=== PATIENT | male | born 2000 | race Caucasian/White ===

== ENCOUNTER 2022-11-15 15:04 | Emergency (ER) | payer OTHER, SELFPAY ==
[2022-11-15 15:12] VITALS: BP 133/79; PULSE 76; RESP 16; TEMP 36.9; O2SAT 100; BMI 20.7
[2022-11-15 17:30] VITALS: BP 122/61; PULSE 74; O2SAT 97
[2022-11-15] MEDS: KETOROLAC 30 MG/ML VIAL IV (18:04)
[2022-11-15] MEDS: ACETAMINOPHEN 325 MG TABLET 975 MG PO (18:04)
[2022-11-15] MEDS: DEXAMETHASONE 10 MG/ML VIAL IV (18:07)
[2022-11-15] MEDS: METOCLOPRAMIDE 10 MG/2 ML INJ IV (18:07)
[2022-11-15] MEDS: SODIUM CHLORIDE 0.9% 1,000 ML 1000 ML IV (18:08)
--- NOTE | 2022-11-15 18:14 | ED.HA ---
HPI - Headache General Chief Complaint: Headache Stated Complaint: Headache since monday Time Seen by Provider: 11/15/22 18:02 Source: patient Mode of arrival: Ambulatory Limitations: no limitations History of Present Illness HPI Narrative: Patient has an otherwise healthy 22-year-old male who was sent to the emergency department by the medical department on the [facility] for concerns about meningitis. Patient states he is having a migraine headache. The current headache that he is having has been there for the past week. He states that it feels like his prior migraine headaches. He does not take any medications regularly for headaches but does state that he gets a headache approximately 3 times a month that does affect his ability to go to work in his daily life. He normally just takes naproxen for this which normally helps. His current headache feels like prior headaches. He did have a fever at 1 point during this course but not currently. Also had neck pain several days ago but that has completely resolved. He reports no vision changes. No numbness or tingling in his upper and lower extremities. Related Data Previous Rx's Medication Instructions Recorded kqkgdgkeks-yojyuofmpnzbo-gaveikva 1 cap PO Q4-6H PRN headache #20 11/15/22 50 mg-300 mg-40 mg capsule caps (Fioricet) Allergies Allergy/AdvReac Type Severity Reaction Status Date / Time No Known Drug Allergies Allergy Verified 11/15/22 15:16 Review of Systems Constitutional Constitutional: Reports system reviewed and no additional complaints, except as documented Cardiovascular Cardiovascular: Reports system reviewed and no additional complaints, except as documented Respiratory Respiratory: Reports system reviewed and no additional complaints, except as documented Gastrointestinal Gastrointestinal: Reports system reviewed and no additional complaints, except as documented Integumentary/Breasts Skin/Breast: Reports system reviewed and no additional complaints, except as documented Neurologic Neurologic: Reports system reviewed and no additional complaints, except as documented Hematologic/Lymphatic On Anticoagulants: No Patient History Social History Smoking Status: Never smoker Smoking Status: Never smoker Substance Use Type: does not use Exam Initial Vital Signs Initial Vital Signs: Vital Signs Temperature 98.4 F 11/15/22 15:12 Pulse Rate 76 11/15/22 15:12 Respiratory Rate 16 11/15/22 15:12 Blood Pressure 133/79 11/15/22 15:12 Pulse Oximetry 100 11/15/22 15:12 Oxygen Delivery Method Room Air 11/15/22 15:12 Const General: cooperative, comfortable and No ill appearing HENWV Head: normal to inspection and normocephalic Eyes General: Yes appearance normal, both eyes and all related structures Resp Effort & Inspection: normal respiratory effort Auscultation: clear to auscultation bilaterally Cardio Rate: regular rate Rhythm: regular rhythm Skin General: no rashes or lesions noted Neuro General: patient alert, patient awake, patient oriented x3, moves all extremities and no meningeal signs Extrem General: normal to inspection and capillary refill normal Psych Appearance: grossly normal and well kempt Scores GCS [place] coma scale eye opening: Spontaneous Lul coma scale verbal response: Orientated Lul coma scale motor response: Obey commands Lul coma scale total score: 15 Course Orders Ordered: ED Orders 11/15/22 17:57 CMP [Comprehensive Metabolic Panel] Stat Complete Blood Count AUTO DIFF Stat Discontinued Medications Acetaminophen (Acetaminophen 325 Mg Tablet) 975 mg PO NOW ONE Stop: 11/15/22 17:16 Last Admin: 11/15/22 18:04 Dose: 975 mg Documented By: AT Dexamethasone (Dexamethasone 10 Mg/Ml Vial) 10 mg IV NOW ONE Stop: 11/15/22 17:15 Last Admin: 11/15/22 18:07 Dose: 10 mg Documented By: AT Diphenhydramine HCl (Diphenhydramine 50 Mg/Ml Vial) 25 mg IV NOW ONE Stop: 11/15/22 17:15 Last Admin: 11/15/22 18:03 Dose: Not Given Documented By: AT Sodium Chloride (Normal Saline 0.9%) 1,000 mls @ 1,000 mls/hr IV BOLUS ONE Stop: 11/15/22 18:13 Last Infusion: 11/15/22 19:17 Dose: 0 mls/hr Documented By: Admin: 11/15/22 18:08 Dose: 1,000 mls/hr Documented By: AT Ketorolac Tromethamine (Ketorolac 30 Mg/Ml Vial) 30 mg IV NOW ONE Stop: 11/15/22 17:15 Last Admin: 11/15/22 18:04 Dose: 30 mg Documented By: AT Metoclopramide HCl (Metoclopramide 10 Mg/2 Ml Inj) 10 mg IV NOW ONE Stop: 06/20/23 17:16 Last Admin: 11/15/22 18:07 Dose: 10 mg Documented By: AT Vital Signs Vital signs: Vital Signs - 8 hr 11/15/22 17:30 Pulse Rate 74 Blood Pressure 122/61 Pulse Oximetry 97 Oxygen Delivery Method Room Air MDM - Headache Lab Data Attestation: I reviewed the patient's lab results. 11/15/22 17:57 11/15/22 17:57 Labs: Lab Results 11/15/22 11/15/22 Range/Units 17:57 17:57 WBC 7.2 (4.5-11.0) X10^3/uL RBC 5.04 (4.5-5.9) X10^6/uL Hgb 14.6 (13.5-17.5) g/dL Hct 40.3 L (41-53) % MCV 80.0 (80-100) fL MCH 28.9 (26-34) PG MCHC 36.2 H (30-36) % RDW 13.4 (11.6-14.8) % Plt Count 298 (150-400) X10^3/uL Neut % (Auto) 57.6 (50-75) % Lymph % (Auto) 32.4 (25-40) % Ballard % (Auto) 7.9 (3-14) % Eos % (Auto) 0.9 L (2-4) % Baso % (Auto) 1.2 (0-2) % Neut # (Auto) 4200 (1651-0115) /uL Lymph # (Auto) 2300 (4581-1153) /uL Ball[place] # (Auto) 600 (0-900) /uL Eos # (Auto) 100 (0-450) /uL Baso # (Auto) 100 (0-100) /uL Sodium 139 (137-145) mmol/L Potassium 3.9 (3.4-5.1) mmol/L Chloride 102 (98-107) mmol/L Carbon Dioxide 27 (22-32) mmol/L BUN 11 (9-20) mg/dL Creatinine 0.75 (0.66-1.25) mg/dL Estimated GFR > 60 (>60) mL/min BUN/Creatinine Ratio 14.7 (6-22) Glucose 86 (70-100) mg/dL Calcium 8.9 (8.4-10.2) mg/dL Total Bilirubin 0.3 (0.2-1.3) mg/dL AST 21 (17-59) IU/L ALT 21 (<50) IU/L Alkaline Phosphatase 67 (38-126) U/L Total Protein 7.9 (6.3-8.2) g/dL Albumin 4.3 (3.5-5.0) g/dL Globulin 3.6 (1.7-4.1) g/dL Albumin/Globulin Ratio 1.2 (1.0-2.8) MDM Narrative Medical decision making narrative: I have low suspicion for meningitis based on his presentation today. He is no neck pain. No fevers. No other meningeal signs. His headache was completely resolved after medications given here through the IV. Patient is comfortable going home. He is no other neurologic symptoms. I did discuss with him his headaches in the frequency that he is having them. Informed him that he should talk with his medical department about a referral to see a headache specialist as he may benefit from more frequent medications given the fact that he is having headaches that affect his daily living at least 3 times a month. Patient was given strict return precautions. He expressed understanding and agreement. Discharge Plan Departure Patient Disposition: Home Clinical Impression: Migraine Instructions: DI for Migraine Activity Restrictions/Additional Instructions: I do recommend that [place] your [place] and to discuss the indications for referral to see a headache specialist. Return to the emergency department for new or worsening symptoms. Prescriptions: New uhvgfxuvkk-izukcyiveoesx-dnxe [Fioricet] 50-300-40 mg capsule 1 cap PO Q4-6H PRN (Reason: headache) Qty: 20 0RF Stand Alone Forms: Patient Portal/API, Work Release Note
[2022-11-15 18:20] LABS: Alanine Aminotransferase 21 IU/L (<50); Albumin 4.3 g/dL (3.5-5.0); Albumin Globulin Ratio 1.2 (1.0-2.8); Alkaline Phosphatase 67 U/L (38-126); Aspartate Aminotransferase 21 IU/L (17-59); BUN Creatinine Ratio 14.7 (6-22); Bilirubin Total 0.3 mg/dL (0.2-1.3); Blood Urea Nitrogen 11 mg/dL (9-20); Calcium 8.9 mg/dL (8.4-10.2); Carbon Dioxide 27 mmol/L (22-32); Chloride 102 mmol/L (98-107); Estimated Glomerular Filt Rate > 60 mL/min (>60); Globulin 3.6 g/dL (1.7-4.1); Glucose 86 mg/dL (70-100); HEMOLYSIS < 15 (0-50); Potassium 3.9 mmol/L (3.4-5.1); Sodium 139 mmol/L (137-145); Total Protein 7.9 g/dL (6.3-8.2)
[2022-11-15 18:21] LABS: Add Manual Diff / Slide Review NO; Basophils Absolute Auto 100 /uL (0-100); Basophils Percent Auto 1.2 % (0-2); Eosinophils Absolute Auto 100 /uL (0-450); Eosinophils Percent Auto 0.9 % (2-4); Hematocrit 40.3 % (41-53); Hemoglobin 14.6 g/dL (13.5-17.5); Lymphocytes Absolute Auto 2300 /uL (1100-4500); Lymphocytes Percent Auto 32.4 % (25-40); Mean Corpuscular HGB Conc 36.2 % (30-36); Mean Corpuscular Hemoglobin 28.9 PG (26-34); Monocytes Absolute Auto 600 /uL (0-900); Monocytes Percent Auto 7.9 % (3-14); Neutrophils Absolute Auto 4200 /uL (1500-7000); Neutrophils Percent Auto 57.6 % (50-75); Platelet Count 298 X10^3/uL (150-400); Red Blood Cell Count 5.04 X10^6/uL (4.5-5.9); Red Cell Distribution Width 13.4 % (11.6-14.8); White Blood Cell Count 7.2 X10^3/uL (4.5-11.0)
== END 2022-11-15 19:20 | disposition home or self-care (01) ==
PROVIDERS: Student in an Organized Health Care Education/Training Program; Emergency Provider Emergency Medicine
DX: G43.909 Migraine, unspecified, not intractable, without status migrainosus (principal)
CPT/HCPCS: 36415; 80053; 85025; 96374; 96375; 99284; J1100; J1885; J2765

== ENCOUNTER 2022-11-18 11:49 | Emergency (ER) | payer OTHER, SELFPAY ==
[2022-11-18 11:55] VITALS: BP 111/74; PULSE 80; RESP 14; TEMP 36.7; O2SAT 97; BMI 20.7
--- NOTE | 2022-11-18 14:05 | ED_ITS ---
HPI - Headache General Chief Complaint: Headache Stated Complaint: Migraine since monday Time Seen by Provider: 11/18/22 14:05 Source: patient, RN notes reviewed and old records reviewed Mode of arrival: Ambulatory Limitations: no limitations History of Present Illness HPI Narrative: This is a 22-year-old male with history of migraines starting in his pre teens after 2 concussions back to back, patient states he did see Neurology at that. And had them intermittently on and off since then. Patient states he is having continued migraine headache he was seen here on the . He states headache feels similar to his typical migraines in the past he is having them about 3 times monthly but did have a break about 8 months and has had 2 in the last week. He states he had relief with medications here in the emergency department. He denies fevers or chills no cold cough or congestion, no neck or back pain, no chest pain or shortness of breath. No nausea or vomiting. Some mild photophobia and sounds are bothersome. Denies any numbness, tingling or weakness, no difficulty with speech, movement, no lightheadedness or passing out. No vision changes. Patient states no daily medications. No known drug allergies. Note from 11/15/2022 notes that he was sent for concerns of meningitis he states that that was because he had a sore throat that lasted about 24 hours and then resolved. He states he had discomfort in his neck at that time but has all resolved and he has been asymptomatic otherwise. No tobacco, alcohol or illicit. He is not currently following with Neurology. He does follow with the [facility] [employer] [facility]. Related Data Previous Rx's Medication Instructions Recorded snahsrirdv-gjzygpwyoandl-lvthtken 1 cap PO Q4-6H PRN headache #20 11/15/22 50 mg-300 mg-40 mg capsule caps (Fioricet) Allergies Allergy/AdvReac Type Severity Reaction Status Date / Time No Known Drug Allergies Allergy Verified 11/18/22 11:59 Review of Systems Review of Systems ROS Unobtainable: All systems reviewed & are unremarkable except as noted in HPI and below Patient History Social History Smoking Status: Never smoker Smoking Status: Never smoker Substance Use Type: does not use Exam Narrative Exam Narrative: GEN: Thin, well appearing male, alert and oriented x 3, patient appears to be in mild distress. HEENT: Atraumatic, pupils are equal round reactive to light, extraocular movements are intact, nares are clear, TMs are clear with no fluid, there is no conjunctival pallor. Throat is clear without any exudates, erythema, tonsillar enlargement or uvular deviation, no facial droop. HEART: Regular rate and rhythm without murmur, clicks, rubs. LUNGS:Lungs clear to auscultation, no wheezes, rales, crackles, chest moves symmetrically ABD:bowel sounds normal, soft, non-tender, no guarding, rebound, rigidity, no masses noted, no hepatosplenomegaly :No CVA tenderness MSCL: Non-tender, no muscle atrophy, muscles strength 5/5 upper and lower extremities, full range of motion, normal gait NEURO:CN 2-12 intact, sensation normal, reflexes 2/4 upper and lower extremities. finger nose finger test normal, heel walters test normal SKIN: No rash, erythema or other skin changes Initial Vital Signs Initial Vital Signs: Vital Signs Temperature 98.1 F 11/18/22 11:55 Pulse Rate 80 11/18/22 11:55 Respiratory Rate 14 11/18/22 11:55 Blood Pressure 111/74 11/18/22 11:55 Pulse Oximetry 97 11/18/22 11:55 Oxygen Delivery Method Room Air 11/18/22 11:55 Course Orders Ordered: Discontinued Medications Sodium Chloride (Normal Saline 0.9%) 1,000 mls @ 1,000 mls/hr IV BOLUS ONE Stop: 11/18/22 15:53 Last Infusion: 11/18/22 16:06 Dose: 0 mls/hr Documented By: Admin: 11/18/22 15:02 Dose: 1,000 mls/hr Documented By: CTS Ketorolac Tromethamine (Ketorolac 30 Mg/Ml Vial) 15 mg IV NOW ONE Stop: 11/18/22 14:55 Last Admin: 11/18/22 15:02 Dose: 15 mg Documented By: CTS Metoclopramide HCl (Metoclopramide 10 Mg/2 Ml Inj) 10 mg IV NOW ONE Stop: 11/18/22 14:55 Last Admin: 11/18/22 15:02 Dose: 10 mg Documented By: CTS Vital Signs Vital signs: Vital Signs - 8 hr 11/18/22 11:55 11/18/22 15:34 11/18/22 15:34 Temperature 98.1 F Pulse Rate 80 68 Respiratory Rate 14 Blood Pressure 111/74 108/64 Pulse Oximetry 97 98 Oxygen Delivery Method Room Air 11/18/22 16:29 11/18/22 16:29 11/18/22 16:30 Temperature Pulse Rate 65 62 Respiratory Rate Blood Pressure 106/64 Pulse Oximetry 98 97 Oxygen Delivery Method MDM - Headache MDM Narrative Medical decision making narrative: This is a 22-year-old male with reported history of migraines on and off since his pre teens after having 2 concussions back to back, states he see Neurology in the past and does not have any other acute red flag symptoms currently. I did ask as his chart from 11/15/2022 had mentioned that [facility] was [facility] but he states he had a sore throat which has since resolved and denies any other infectious symptoms or other new changes to his typical migraine pattern. He is not currently following with Neurology we did discuss about daily medications if he is having regular migraines he states he is limited secondary to flying. Discharge Plan Departure Patient Disposition: Home Clinical Impression: Migraine Instructions: DI for Migraine Activity Restrictions/Additional Instructions: Please follow-up with your physician if your symptoms are persisting. If you are having frequent recurrent migraines I would recommend following up with Neurology. Referral is included below. You can take Tylenol up to a 1000 mg and/or ibuprofen up to 600 mg every 6 hours as needed. Please return for fevers, severe headaches, new vision changes, numbness, tin gling weakness, throwing up, passing out, you neck or back pain or other new or concerning changes. Prescriptions: No Action iqllsrbpna-bsniwrpczmwwb-bkde [Fioricet] 50-300-40 mg capsule 1 cap PO Q4-6H PRN (Reason: headache) Qty: 20 0RF Referrals: ProviderAlysha [Primary Care Provider] - Stand Alone Forms: Patient Portal/API, Work Release Note
[2022-11-18] MEDS: KETOROLAC 30 MG/ML VIAL 15 MG IV (15:02)
[2022-11-18] MEDS: METOCLOPRAMIDE 10 MG/2 ML INJ IV (15:02)
[2022-11-18] MEDS: SODIUM CHLORIDE 0.9% 1,000 ML 1000 ML IV (15:02)
[2022-11-18 15:34] VITALS: BP 108/64; PULSE 68; O2SAT 98
[2022-11-18 16:29] VITALS: BP 106/64; PULSE 65; O2SAT 98
[2022-11-18 16:30] VITALS: PULSE 62; O2SAT 97
== END 2022-11-18 16:35 | disposition home or self-care (01) ==
PROVIDERS: Emergency Provider Emergency Medicine
DX: G43.909 Migraine, unspecified, not intractable, without status migrainosus (principal)
CPT/HCPCS: 96361; 96374; 96375; 99283; 99284; J1885; J2765